=== PATIENT | female | born 1965 | race Hispanic/Latino ===

== ENCOUNTER 2022-05-04 12:29 | Emergency (ER) | payer SELFPAY ==
[~2022-05-04] VITALS: Ht 157.5 cm; Wt 73.9 kg
[2022-05-04 12:34] VITALS: BP 158/89
[2022-05-04] MEDS ORDERED: KETOROLAC 30MG VIAL (30MG/ML) IM ONE (15:00)
[2022-05-04] MEDS ORDERED: NAPR500T6 PO (15:02)
[2022-05-04] MEDS ORDERED: PRED20TA3 PO (15:24)
== END 2022-05-04 15:33 | disposition home or self-care (01) ==
LOC: EDH 12:29
DX: M72.2 Plantar fascial fibromatosis (principal); I10 Essential (primary) hypertension; Z88.5 Allergy status to narcotic agent; Z79.899 Other long term (current) drug therapy
CPT/HCPCS: 99283; 73630; 96372; J1885